=== PATIENT | male | born 1990 | race Caucasian/White ===

== ENCOUNTER 2021-04-29 10:14 | Emergency (ER) | payer MEDICAID, SELFPAY ==
[2021-04-29 10:37] VITALS: BP 157/98; PULSE 97; RESP 18; TEMP 37; O2SAT 98; BMI 32.1
--- NOTE | 2021-04-29 11:23 | ED.DENTAL ---
HPI - Dental/Oral General Chief complaint: Dental/Oral Stated complaint: DENTAL PAIN Time Seen by Provider: 04/29/21 11:10 Source: patient Mode of arrival: ambulatory History of Present Illness HPI Narrative: 30-year-old male with no significant past medical history presenting to the ED complaining of right-sided lower dental pain x3 days. Reports right lower gum swelling encroaching on lower molar. Denies recent dental procedure, dental trauma, biting, fever, chills, oral swelling, difficulty swallowing/eating, drooling MD Complaint: tooth pain Related Data Previous Rx's Medication Instructions Recorded acetaminophen 500 mg tablet 500 mg PO Q6H PRN #20 tab 04/29/21 (Tylenol Extra Strength) amoxicillin 875 mg-potassium 1 tab PO Q12H 7 Days #14 tab 04/29/21 clavulanate 125 mg tablet (Augmentin) naproxen 500 mg tablet 500 mg PO BID PRN 10 Days #20 tab 04/29/21 Allergies Allergy/AdvReac Type Severity Reaction Status Date / Time No Known Allergies Allergy Verified 04/29/21 10:39 Review of Systems Review of Systems: Constitutional: No Fever, No Chills ENT/Mouth: No Ear Pain, No Nasal Congestion, No Sinus Pain, No Hoarseness, No sore throat, No Rhinorrhea, No Swallowing Difficulty, + dental pain Cardiovascular: No Chest Pain, No SOB Respiratory: No Cough Gastrointestinal: No Nausea, No Vomiting, No Abdominal pain Genitourinary:, No Dysuria, No Hematuria, No Flank Pain Musculoskeletal: No joint pain, No Myalgias, No Joint Swelling Skin: No Skin Lesions, No rash Neuro: No Weakness, No Numbness Yes all other systems are reviewed and are negative [facility] Past Medical History Attestation statement: The following information was validated with the patient. Medical History (Updated 04/29/21 @ 11:25 by JAY Kumar) No known health problems Social History Social History Advance Directives: No Advance Directives Information Provided: No Physical Exam Vital Signs: Vital Signs: Last Vital Signs Temp 98.6 F 04/29/21 10:37 Pulse 97 04/29/21 10:37 Resp 18 04/29/21 10:37 BP 157/98 H 04/29/21 10:37 Pulse Ox 98 04/29/21 10:37 Body Mass Index 32.1 Const: General: cooperative, healthy appearing and no acute distress Orientation/consciousness: patient oriented x3 Limitations: no limitations HENMT: Other: Right lower posterior molar surrounded with swollen gums partially covering molar, + gingivitis, tender to palpation. No erythema/pointing. No fluctuance/induration, + halitosis Head: Yes normal to inspection, Yes normocephalic and Yes atraumatic Ears: hearing grossly normal bilaterally, external ears normal, TM's normal bilaterally and mastoids normal General nose exam: Normal external nose present Face and sinus: Yes normal facial exam Mouth: Normal oral and palatal mucosa present Throat: Yes posterior oropharynx normal, Yes tonsils normal, Yes uvula midline, No uvula laterally displaced and No uvular edema Eyes: General: appearance normal, both eyes and all related structures EOM: EOMs intact bilaterally Neck: Neck: Yes normal visual inspection, Yes full ROM, Yes no lymphadenopathy and Yes no meningeal signs Resp: Effort & Inspection: normal respiratory effort, no respiratory distress and no stridor Cardio: Rate: regular rate Heart sounds: S1 normal heart sound present and S2 normal heart sound present Skin: Rashes: no rashes Wounds: no wounds Neuro: General: patient oriented x3 and no meningeal signs Gait exam (Neuro): Normal gait present Extrem: General: Yes normal to inspection MDM - Dental/Oral MDM Narrative Medical decision making narrative: 30-year-old male with no significant past medical history presenting to the ED complaining of right-sided lower dental pain x3 days. On exam VS, NAD/well-appearing on physical exam as above. Concern for ?pericarditis vs gingivitis. No evidence of abscess at this time or area that can be I&D'd. Uvula midline, no respiratory distress. Discussed with patient he needs follow-up with dentist. Plan: Augmentin, pain management Medical Records Attestation: I reviewed the patient's medical records. Lab Data Attestation: I reviewed the patient's lab results. Discharge Plan Discharge Clinical Impression: Acute gingivitis Patient Disposition: Home, Self-Care Instructions: Gingivitis (ED) Additional Instructions: Augmentin is an antibiotic, please take as prescribed Practice warm salt water mouthwashes at home Take Tylenol and naproxen. Take with food. Eat soft foods Please follow-up with a dentist as soon as possible Prescriptions: New acetaminophen [Tylenol Extra Strength] 500 mg tablet 500 mg PO Q6H PRN (Reason: pain or fever) Qty: 20 RF: 0 naproxen 500 mg tablet 500 mg PO BID PRN (Reason: pain) 10 Days Qty: 20 RF: 0 amoxicillin-pot clavulanate [Augmentin] 875-125 mg tablet 1 tab PO Q12H 7 Days Qty: 14 RF: 0 Referrals: Richard Alvarenga DMD [Dentist] - 2 days Monty Wilkinson DMD [Dentist] - 2 days Macy Beauchamp DMD [Dentist] - 2 days Bubba Westfall DMD [Physician] - 2 days Viral Sol BDS [Physician] - 2 days
[2021-04-29] MEDS: Amoxicillin/Potassium Clav 875 MG TABLET PO (11:33)
== END 2021-04-29 11:37 | disposition home or self-care (01) ==
PROVIDERS: Emergency Provider Emergency Medicine
DX: K05.00 Acute gingivitis, plaque induced (principal)
CPT/HCPCS: 99283

== ENCOUNTER 2021-04-30 07:43 | Emergency (ER) | payer MEDICAID, SELFPAY ==
[2021-04-30 07:51] VITALS: BP 132/71; PULSE 82; RESP 18; TEMP 36.6; O2SAT 99; BMI 32.1
--- NOTE | 2021-04-30 08:13 | ED.DENTAL ---
HPI - Dental/Oral General Chief complaint: Dental/Oral Stated complaint: bleeding gums Time Seen by Provider: 04/30/21 08:11 Source: patient Mode of arrival: ambulatory Limitations: no limitations History of Present Illness HPI Narrative: 30-year-old male presents emergency department complaining of right lower dental pain around tooth 31 and 32. He states he was seen here yesterday was given naproxen and Tylenol and Augmentin. Patient woke up this morning with some blood in that area. Since it is Saturday patient was unable to see a dentist and was concerned about the bleeding. He states the pain is adequately controlled at this time. Teeth map: 1. Related Data Previous Rx's Medication Instructions Recorded acetaminophen 500 mg tablet 500 mg PO Q6H PRN #20 tab 04/29/21 (Tylenol Extra Strength) amoxicillin 875 mg-potassium 1 tab PO Q12H 7 Days #14 tab 04/29/21 clavulanate 125 mg tablet (Augmentin) naproxen 500 mg tablet 500 mg PO BID PRN 10 Days #20 tab 04/29/21 Allergies Allergy/AdvReac Type Severity Reaction Status Date / Time No Known Allergies Allergy Verified 04/29/21 10:39 Review of Systems Review of Systems: Review of systems: General: Patient denies any fever chills recent illness or falls Musculoskeletal: Denies back pain or body aches or other injuries HEENT: Right lower dental pain and bleeding in his gums denies headache, runny nose, ear pain Respiratory: denies shortness of breath, cough Cardiovascular: no chest pain or palpitations : denies dysuria, frequency Abdomen: no nausea vomiting denies abdominal pain Extremities: no swelling, no pain Skin: no diaphoresis Yes all other systems are reviewed and are negative ENT: Reports bleeding gums and Reports dental pain PMFSH Past Medical History Medical History (Updated 04/30/21 @ 08:20 by Mike Sprague DO) No known health problems Social History Social History Advance Directives: No Advance Directives Information Provided: No Physical Exam Vital Signs: Vital Signs: Last Vital Signs Temp 98 F 04/30/21 07:51 Pulse 82 04/30/21 07:51 Resp 18 04/30/21 07:51 BP 132/71 04/30/21 07:51 Pulse Ox 99 04/30/21 07:51 Body Mass Index 32.1 HENMT: Face and sinus: Yes normal facial exam Mouth: Normal oral and palatal mucosa present, lip normal and tongue normal Teeth image: 1. Around tooth 31 can see an area where there is swelling concerned that the gum is infiltrated with a tooth with some bleeding noted no signs of abscess MDM - Dental/Oral MDM Narrative Medical decision making narrative: Patients is already on antibiotics and naproxen patient will call follow-up with dentist tomorrow I will send home. Discharge Plan Discharge Clinical Impression: Toothache Patient Disposition: Home, Self-Care Instructions: Toothache (ED) Additional Instructions: Please call follow-up with dentist tomorrow. Prescriptions: No Action acetaminophen [Tylenol Extra Strength] 500 mg tablet 500 mg PO Q6H PRN (Reason: pain or fever) Qty: 20 RF: 0 naproxen 500 mg tablet 500 mg PO BID PRN (Reason: pain) 10 Days Qty: 20 RF: 0 amoxicillin-pot clavulanate [Augmentin] 875-125 mg tablet 1 tab PO Q12H 7 Days Qty: 14 RF: 0
== END 2021-04-30 08:39 | disposition home or self-care (01) ==
PROVIDERS: Emergency Provider Student in an Organized Health Care Education/Training Program
DX: K08.89 Other specified disorders of teeth and supporting structures (principal)
CPT/HCPCS: 99282; 99283